=== PATIENT | male | born 1965 | race Caucasian/White ===

== ENCOUNTER 2021-07-21 20:34 | Inpatient (IN) | payer OTHER ==
--- NOTE | 2021-07-21 21:33 | ED ---
SOB HPI - General Stated Complaint: covid+, SOB Time Seen by Provider: 07/21/21 20:36 Source: patient, EMS Mode of arrival: EMS Limitations: no limitations - History of Present Illness Initial Comments: 55 year-old male patient presents to the emergency department as a transfer from [facility] for hypoxic respiratory failure related to COVID-19. Patient states that he started having symptoms about a week ago and tested positive for COVID. States that he started to become progressively more short of breath over the last couple of days. Unable to walk to the bathroom without becoming significantly winded. Patient did have extensive work up in [place], chest xray showed multifocal pneumonia consistent with COVID-19. Oxygen saturation decreased there to 84% on room air. Labs showed positive COVID test, Na 129, Mg 2.4. He was given tylenol, decadron, and IV fluids. Patient denies any other medical problems. Denies history of smoking. No chronic lung conditions. He is not vaccinated. - Related Data Allergies Allergy/AdvReac Type Severity Reaction Status Date / Time No Known Allergies Allergy Verified 07/21/21 20:43 Review of Systems ROS Statement: Those systems with pertinent positive or pertinent negative responses have been documented in the HPI. ROS Other: All systems not noted in ROS Statement are negative. Past Medical History Past Medical History: No Reported History History of Any Multi-Drug Resistant Organisms: None Reported Past Surgical History: No Surgical Hx Reported Past Psychological History: No Psychological Hx Reported Smoking Status: Never smoker Past Alcohol Use History: None Reported Past Drug Use History: None Reported General Exam Limitations: no limitations General appearance: alert, in no apparent distress, other (Physical well- developed, well-nourished adult male patient in mild respiratory distress.) Eye exam: Present: normal appearance, PERRL, EOMI. Absent: scleral icterus, conjunctival injection, periorbital swelling ENT exam: Present: normal exam, normal oropharynx, mucous membranes moist Respiratory exam: Present: normal lung sounds bilaterally, respiratory distress, other (Tachypnea). Absent: wheezes, rales, rhonchi, stridor Cardiovascular Exam: Present: normal rhythm, tachycardia, normal heart sounds. Absent: systolic murmur, diastolic murmur, rubs, gallop, clicks GI/Abdominal exam: Present: soft, normal bowel sounds. Absent: distended, tenderness, guarding, rebound, rigid Neurological exam: Present: alert, oriented X3, CN II-XII intact Psychiatric exam: Present: normal affect, normal mood Skin exam: Present: warm, dry, intact, normal color. Absent: rash Course Vital Signs 07/21/21 20:37 Temperature 97.9 F Pulse Rate 92 Respiratory 24 Rate Blood Pressure 141/93 O2 Sat by Pulse 86 L Oximetry Medical Decision Making - Medical Decision Making 75-year-old male patient presents to the emergency department today as a transfer from [facility] for hypoxic respiratory failure related to COVID- 19. Saturday hypoxic at 84% on room air. Chest x-ray showed pneumonia. Lab work showed decreased sodium and elevated magnesium most likely related to dehydration. We will do CT Angio of the Chest. He will be admitted for further evaluation and monitoring. Will treat with steroids, supplemental oxygen, Vitamins, and consult pulmonology. Patient is agreeable with this plan. Case discussed with my attending Dr. Kate. Disposition Clinical Impression: Acute hypoxemic respiratory failure due to COVID-19, Dehydration Disposition: ADMITTED IP TO THIS [facility] Condition: Serious Referrals: Andres Subramanian MD [Primary Care Provider] - 1-2 days Decision to Admit Reason: Admit from EC Decision Date: 07/21/21 Decision Time: 21:34
[2021-07-21] MEDS ORDERED: NALOXONE 0.4 MG/ML 1 ML VIAL IV PRN (21:34)
[2021-07-21] MEDS ORDERED: ONDANSETRON 4 MG/2 ML VIAL IVP PRN (21:34)
[2021-07-21] MEDS ORDERED: ACETAMINOPHEN TAB 325 MG TAB PO PRN (21:34)
--- NOTE | 2021-07-21 22:24 | CT ---
EXAMINATION TYPE: CT chest angio for PE DATE OF EXAM: 07/21/2021 COMPARISON: None HISTORY: covid CT DLP: 311 mGycm Automated exposure control for dose reduction was used. CONTRAST: Performed with IV Contrast, patient injected with 100 mL of Isovue 370. There are 3-D post processed images. Images obtained from the thoracic inlet to the diaphragm with IV contrast. There is extensive patchy airspace infiltrates throughout both lungs. Heart is top normal in size. Th ere is no pericardial effusion. There is no evidence of any significant pleural fluid. Upper abdomina l soft tissues appear intact. There is normal contrast opacification of the pulmonary arteries. There are no filling defects. Thoracic aorta is intact. There is no aneurysm or dissection. There are a few bilateral bronchial lymph nodes that measure up to 1.5 cm. There are a few paratrache al mediastinal lymph nodes up to 1.5 cm. The thoracic spine is intact. IMPRESSION: No evidence of pulmonary embolism. Extensive multifocal pneumonia. Mild mediastinal and bronchial adenopathy consistent with pneumonia.
[2021-07-22] MEDS ORDERED: ALBUTEROL HFA INHALER INHALATION PRN ×2 (01:04→17:22)
[2021-07-22] MEDS: SODIUM CHLORIDE 0.9% 1,000 ML IV SCH ×3 (05:16→23:55)
[2021-07-22] MEDS: ALBUTEROL HFA INHALER INHALATION SCH ×4 (07:47→20:32)
--- NOTE | 2021-07-22 09:42 | P.CNPUL ---
History of Present Illness Consult date: 07/22/21 Requesting physician: Jesse Bearden Reason for consult: pneumonia Chief complaint: Shortness of breath and cough History of present illness: This is a 55-year-old white male, on vaccination needed for COVID-19 infection, patient has no previous medical illnesses, he was seen in the ER at [facility], with mostly symptoms of upper respiratory infection, cough, shortness of breath, nasal congestion, and this was back on the which is roughly 8 days ago. Patient tested positive for COVID-19 infection, however he was told that there is nothing to do and he should be taking jxon-rgo-[id number] medications at home. Patient took Tylenol, he also took Decadron, and fluids, however he was getting worse. Seen again in the ER and he was noted to have extensive infiltrates on his chest x-ray and on his CT angiogram of the chest, patient was transferred to [facility], required the liters high flow and nonrebreather mask, to maintain O2 saturation in the low 90s. Patient was admitted, and this consult was initiated. Mostly patient had symptoms of URI, he had low-grade fever at one point, he had no nausea no vomiting no abdominal pain no diarrhea, no loss of sensation of taste or smell. Review of Systems Constitutional: Weakness and low-grade fever. HEENT: Nasal congestion. No sore throat. Pulmonary: Cough and shortness of breath Cardiac: Negative GI: Negative Genitourinary: Negative Muscular skeletal: Negative except for weakness Skin negative Endocrine negative Neuropsych negative Hematologic: Negative Past Medical History Past Medical History: No Reported History History of Any Multi-Drug Resistant Organisms: None Reported Past Surgical History: No Surgical Hx Reported Past Anesthesia/Blood Transfusion Reactions: No Reported Reaction Past Psychological History: No Psychological Hx Reported Smoking Status: Never smoker Past Alcohol Use History: None Reported Past Drug Use History: None Reported Medications and Allergies Home Medications Medication Instructions Recorded Confirmed Type Albuterol Sulfate [Albuterol 2 puff PO RT-Q6H PRN 07/21/21 07/21/21 History Sulfate Hfa] Allergies Allergy/AdvReac Type Severity Reaction Status Date / Time No Known Allergies Allergy Verified 07/21/21 21:33 Physical Exam Vitals: Vital Signs Temp Pulse Resp BP BP Pulse Ox 07/22/21 08:12 94 L 07/22/21 05:41 97.6 F 137/81 94 L 07/22/21 03:00 91 22 116/83 91 L 07/22/21 01:50 93 L 07/22/21 01:04 91 22 128/86 86 L 07/21/21 20:37 97.9 F 92 24 141/93 86 L Intake and Output 07/21/21 07/22/21 07/22/21 22:59 06:59 14:59 Intake Total 0 Balance 0 Intake: Oral 0 Other: # Voids 0 Weight 83.915 kg 83.915 kg Physical Exam: Revealed 55-year-old white male on non-rebreather mask, in no distress while on oxygen. Head: Atraumatic, normocephalic. HEENT:[Neck is supple.] [No neck masses.] [No thyromegaly.] [No JVD.] Chest: [Symmetrical chest expansion, crackles at the bases. No rhonchi and no wheezes. Cardiac Exam: [Normal S1 and S2, no S3 gallop, no murmur.] Abdomen: [Soft, nontender, no megaly, no rebound, no guarding, normal bowel sounds.] Extremities: [No clubbing, no edema, no cyanosis.] Neurological Exam: [No focal neurologic deficit.] The catheter: Normal mood affect and normal mental status examination. Skin: No rashes. Results - Diagnostic Findings CT scan - chest: image reviewed (As noted on the HPI. No evidence of pulmonary embolism however the patient had extensive bilateral infiltrates consistent with COVID-19 pneumonia.) Assessment and Plan Assessment: Impression: Acute hypoxic respiratory failure secondary to COVID-19 pneumonia Acute hypovolemic hyponatremia unvaccinated for COVID-19 infection Recommendation: Continue oxygen and titrate accordingly Continue COVID-19 cocktail Continue Decadron, vitamin C, vitamin D, and melatonin Start patient on baricitinib Order and monitor inflammatory markers. We will continue to follow. Time with Patient: Greater than 30
[2021-07-22] MEDS: CHOLECALCIFEROL 125 MCG (5000 IU) TABLET PO SCH (09:43)
[2021-07-22] MEDS: ZINC SULFATE 220 MG CAP PO SCH (09:44)
[2021-07-22] MEDS: DEXAMETHASONE SOD PHOSPHATE 10 MG/ML 1 ML VIAL IVP SCH (09:44)
[2021-07-22] MEDS: ASCORBIC ACID 500 MG TAB PO SCH (09:44)
[2021-07-22 11:13] LABS: Basophils % (A) 0 %; Eosinophils % (A) 0 %; HCT 44.2 % (39.0-53.0); HGB 15.7 gm/dL (13.0-17.5); Lymphocytes # (A) 0.5 k/uL (1.0-4.8); Lymphocytes % (A) 5 %; MCH 33.9 pg (25.0-35.0); MCHC 35.5 g/dL (31.0-37.0); MCV 95.3 fL (80.0-100.0); Mean Platelet Volume 7.5; Monocytes # (A) 0.4 k/uL (0-1.0); Monocytes % (A) 4 %; Neutrophils # (A) 8.3 k/uL (1.3-7.7); Neutrophils % (A) 90 %; Platelet Count 427 k/uL (150-450); RBC 4.64 m/uL (4.30-5.90); WBC 9.3 k/uL (3.8-10.6)
[2021-07-22 11:24] LABS: ALT 78 U/L (4-49); AST 89 U/L (17-59); African American GFR (CKD) >90 (>60 ml/min/1.73 sqM); Albumin 3.1 g/dL (3.5-5.0); Albumin/Globulin Ratio 0.9; Alkaline Phosphatase 155 U/L (38-126); Anion Gap 9 mmol/L; Blood Urea Nitrogen 23 mg/dL (9-20); Calcium 8.2 mg/dL (8.4-10.2); Carbon Dioxide 22 mmol/L (22-30); Chloride 105 mmol/L (98-107); Globulin 3.5 g/dL; Glucose 136 mg/dL (74-99); LDH 1435 U/L (313-618); Non-African American GFR(CKD) >90 (>60 ml/min/1.73 sqM); Potassium 4.4 mmol/L (3.5-5.1); Sodium 136 mmol/L (137-145); Total Bilirubin 1.2 mg/dL (0.2-1.3); Total Protein 6.6 g/dL (6.3-8.2)
[2021-07-22 11:39] LABS: C Reactive Protein 20.9 mg/dL (<1.0)
[2021-07-22] MEDS: BARICITINIB 2 MG TABLET PO SCH (14:17)
[2021-07-22] MEDS: ENOXAPARIN 40 MG/0.4 ML SYRINGE SQ SCH (14:17)
--- NOTE | 2021-07-22 20:25 | HP ---
HISTORY AND PHYSICAL DATE OF SERVICE: 07/22/2021 CHIEF COMPLAINTS: Shortness of breath and cough with . HISTORY OF PRESENT ILLNESS: This 55-year-old gentleman with a past medical history of no significant medical issues presented to [facility] Emergency Room, referred from Awais Amaro. The patient had acute hypoxic respiratory failure secondary to COVID-19. The patient had symptoms for at least 7 days' duration. The patient was found to be COVID-19 positive. Pulse ox 85% on room air on admission. A chest CTA was done which I reviewed personally. It showed acute bilateral extensive interstitial pneumonia, highly suggestive of COVID-19, and the patient was admitted for further evaluation and treatment. There is no history of any fever, rigor or chills at this time. Labs show the patient has lymphopenia and sodium is 137. Inflammatory markers for COVID-19 are elevated. Elevated AST was also noted. Dr. Villegas is following the patient closely. The patient has been started on the usual medications at this time. There is no history of any fever, rigor or chills. PAST MEDICAL HISTORY: No history of cardiovascular illness. MEDICATIONS: Medications prior to admission include albuterol. ALLERGIES: NONE. FAMILY HISTORY: No history of heart disease or strokes in the family. SOCIAL HISTORY: No history of smoking. No history of alcohol intake. REVIEW OF SYSTEMS: ENT: No diminished hearing. No diminished vision. CARDIOVASCULAR SYSTEM: No angina, palpitations. RESPIRATORY SYSTEM: As mentioned earlier. GI: As mentioned earlier. : No dysuria. NERVOUS SYSTEM: No numbness, weakness. ALLERGY/IMMUNOLOGY: No asthma or hay fever. MUSCULOSKELETAL: As mentioned earlier. HEMATOLOGY/ONCOLOGY: No history of anemia. ENDOCRINE: No history of diabetes or hypothyroidism. CONSTITUTIONAL: As mentioned earlier. DERMATOLOGY: Negative. RHEUMATOLOGY: Negative. PSYCHIATRY: As mentioned earlier. PHYSICAL EXAMINATION: Patient alert and oriented x3. Pulse is 96, blood pressure 140/79, respiration 20, temperature 97.4, pulse ox 93% on 13 L. HEENT: Conjunctivae normal. NECK: No jugular venous distention. CARDIOVASCULAR: S1, S2 muffled. RESPIRATION: Breath sounds diminished at the bases. Bilateral scattered rhonchi and crackles. Expiratory wheezing also present. ABDOMEN: Soft, nontender. No mass palpable. LEGS: No edema. No swelling. NERVOUS SYSTEM: Higher functions as mentioned earlier. Moves all 4 limbs. No focal motor or sensory deficit. LYMPHATICS: No lymph node palpable in neck, axillae or groin. SKIN: No ulcer, rash, bleeding. JOINTS: No active deforming arthropathy. LABS: CBC ntd sodium 136, potassium 4.4. Other labs are noted. ASSESSMENT: 1. Acute COVID-19 infection with acute COVID-19 bilateral interstitial pneumonia, severe, with acute hypoxic respiratory failure. 2. Hyponatremia. 3. Lymphopenia. 4. Elevated random glucose. 5. Elevated BUN. 6. Increased AST, ALT, possibly hepatitis secondary to COVID-19. 7. Elevated alkaline phosphatase. 8. Elevated LDH and inflammatory markers of COVID-19. RECOMMENDATIONS AND DISCUSSION: In this 55-year-old gentleman who presented with multiple complex medical issues, we will monitor the patient closely, continue the current medications, continue the usual medication, bronchodilators, steroids and Lovenox. The patient might be a candidate for remdesivir. We will consult Infectious Disease as well as Pulmonary. Continue to monitor. Overall prognosis guarded because of multiple complex medical issues. Further recommendations to follow. MMODL / IJN: [id number] / KAVIN
[2021-07-22] MEDS: FAMOTIDINE 20 MG TAB PO SCH (21:35)
[2021-07-23] MEDS: ALBUTEROL HFA INHALER INHALATION SCH ×4 (07:32→19:52)
[2021-07-23] MEDS: FAMOTIDINE 20 MG TAB PO SCH ×2 (09:27→21:01)
[2021-07-23] MEDS: ASCORBIC ACID 500 MG TAB PO SCH (09:27)
[2021-07-23] MEDS: DEXAMETHASONE SOD PHOSPHATE 10 MG/ML 1 ML VIAL IVP SCH (09:27)
[2021-07-23] MEDS: ZINC SULFATE 220 MG CAP PO SCH (09:30)
[2021-07-23] MEDS: CHOLECALCIFEROL 125 MCG (5000 IU) TABLET PO SCH (09:30)
[2021-07-23] MEDS: ENOXAPARIN 40 MG/0.4 ML SYRINGE SQ SCH (09:30)
[2021-07-23 11:14] LABS: ALT 153 U/L (4-49); African American GFR (CKD) >90 (>60 ml/min/1.73 sqM); Albumin 3.1 g/dL (3.5-5.0); Albumin/Globulin Ratio 0.9; Anion Gap 10 mmol/L; Blood Urea Nitrogen 22 mg/dL (9-20); C Reactive Protein 6.2 mg/dL (<1.0); Calcium 8.3 mg/dL (8.4-10.2); Carbon Dioxide 22 mmol/L (22-30); Chloride 107 mmol/L (98-107); Globulin 3.4 g/dL; Glucose 112 mg/dL (74-99); Non-African American GFR(CKD) >90 (>60 ml/min/1.73 sqM); Sodium 139 mmol/L (137-145); Total Bilirubin 1.2 mg/dL (0.2-1.3); Total Protein 6.5 g/dL (6.3-8.2)
[2021-07-23 11:25] LABS: Potassium 4.7 mmol/L (3.5-5.1)
[2021-07-23 11:26] LABS: AST 145 U/L (17-59); Alkaline Phosphatase 156 U/L (38-126)
[2021-07-23 11:27] LABS: LDH 1803 U/L (313-618)
[2021-07-23 11:55] LABS: Basophils # (A) 0.1 k/uL (0-0.2); Basophils % (A) 1 %; Eosinophils # (A) 0.1 k/uL (0-0.7); Eosinophils % (A) 1 %; HCT 50.1 % (39.0-53.0); HGB 16.7 gm/dL (13.0-17.5); Lymphocytes # (A) 0.7 k/uL (1.0-4.8); Lymphocytes % (A) 7 %; MCH 32.4 pg (25.0-35.0); MCHC 33.3 g/dL (31.0-37.0); MCV 97.4 fL (80.0-100.0); Mean Platelet Volume 8.1; Monocytes # (A) 0.6 k/uL (0-1.0); Monocytes % (A) 5 %; Neutrophils # (A) 9.8 k/uL (1.3-7.7); Neutrophils % (A) 86 %; Platelet Count 495 k/uL (150-450); RBC 5.15 m/uL (4.30-5.90); RDW 13.7 % (11.5-15.5); WBC 11.3 k/uL (3.8-10.6)
[2021-07-23] MEDS: SODIUM CHLORIDE 0.9% 1,000 ML IV SCH (14:05)
[2021-07-23] MEDS: BARICITINIB 2 MG TABLET PO SCH (14:05)
--- NOTE | 2021-07-23 14:40 | P.PN ---
Subjective Progress Note Date: 07/23/21 Principal diagnosis: COVID-19 pneumonia This is a 55-year-old white male, on vaccination needed for COVID-19 infection, patient has no previous medical illnesses, he was seen in the ER at [facility], with mostly symptoms of upper respiratory infection, cough, shortn ess of breath, nasal congestion, and this was back on the which is roughly 8 days ago. Patient tested positive for COVID-19 infection, however he was told that there is nothing to do and he should be taking vpsv-icn-klawlns medications at home. Patient took Tylenol, he also took Decadron, and fluids, however he was getting worse. Seen again in the ER and he was noted to have extensive infi ltrates on his chest x-ray and on his CT angiogram of the chest, patient was transferred to [facility], required the liters high flow and nonrebreather mask, to maintain O2 saturation in the low 90s. Patient was admitted, and this consult was initiated. Mostly patient had symptoms of URI, he had low-grade fever at one point, he had no nausea no vomiting no abdominal pain no diarrhea, no loss of sensation of taste or smell. The patient is seen today 07/23/2021 in follow-up on the regular medical floor. He is currently resting comfortably in bed. Awake and alert in no acute distress. He is still requiring 15 L high flow nasal cannula to maintain O2 saturations at 88%. Occasionally using the nonrebreather mask. He is feeling about the same today as compared to yesterday. No better but no worse. Dyspneic with minimal exertion. 11.3. Hemoglobin 16.7. Lymphocytes 0.7. D- dimer 2.09. Sodium 139. Potassium 4.7. Creatinine 0.90. AST 125. ALT 153. LDH 1803. C-reactive protein 6.2. He remains on ferrous note, Decadron, Lovenox, vitamin supplements. Objective - Vital Signs Vital signs: Vital Signs Temp 97.7 F 07/23/21 08:00 Pulse 111 H 07/23/21 08:00 Resp 20 07/23/21 08:00 BP 129/79 07/23/21 08:00 Pulse Ox 88 L 07/23/21 08:00 Intake & Output 07/22/21 07/23/2107/23/21 18:59 06:59 18:59 Intake Total 1320 Output Total 240 400 Balance -240 1320 -400 Intake: Intake, IV Titration 600 Amount Sodium Chloride 0.9% 1, 600 000 ml @ 75 mls/hr IV . [id number] [facility] Rx#:[id number] Oral 720 Output: Urine 240 400 Other: Voiding Method Urinal # Voids 1 2 - Exam GENERAL EXAM: Alert, doesn't 55 year old gentleman, on 15 L high flow nasal cannula plus nonrebreather, fairly comfortable in no apparent distress. HEAD: Normocephalic. EYES: Normal reaction of pupils, equal size. NOSE: Clear with pink turbinates. THROAT: No erythema or exudates. NECK: No masses, no JVD. CHEST: No chest wall deformity. LUNGS: Equal air entry with crackles in the bilateral bases. CVS: S1 and S2 normal with no audible murmur, regular rhythm. ABDOMEN: No hepatosplenomegaly, normal bowel sounds, no guarding or rigidity. SPINE: No scoliosis or deformity SKIN: No rashes CENTRAL NERVOUS SYSTEM: No focal deficits, tone is normal in all 4 extremities. EXTREMITIES: There is no peripheral edema. No clubbing, no cyanosis. Peripheral pulses are intact. - Labs CBC & Chem 7: 07/23/21 10:30 07/23/21 10:30 Labs: Abnormal Lab Results - Last 24 Hours (Table) 07/22/21 07/23/21 07/23/21 Range/Units 11:01 10:30 10:30 WBC 11.3 H (3.8-10.6) k/uL Plt Count 495 H (150-450) k/uL Neutrophils # 9.8 H (1.3-7.7) k/uL Lymphocytes # 0.7 L (1.0-4.8) k/uL D-Dimer 2.09 H (<0.60) mg/L FEU BUN (9-20) mg/dL Glucose (74-99) mg/dL Calcium (8.4-10.2) mg/dL AST (17-59) U/L ALT (4-49) U/L Alkaline Phosphatase (38-126) U/L Lactate Dehydrogenase (313-618) U/L C-Reactive Protein (<1.0) mg/dL Albumin (3.5-5.0) g/dL Procalcitonin 0.26 H (0.02-0.09) ng/mL 07/23/21 Range/Units 10:30 WBC (3.8-10.6) k/uL Plt Count (150-450) k/uL Neutrophils # (1.3-7.7) k/uL Lymphocytes # (1.0-4.8) k/uL D-Dimer (<0.60) mg/L FEU BUN 22 H (9-20) mg/dL Glucose 112 H (74-99) mg/dL Calcium 8.3 L (8.4-10.2) mg/dL AST 145 H (17-59) U/L ALT 153 H (4-49) U/L Alkaline Phosphatase 156 H (38-126) U/L Lactate Dehydrogenase 1803 H (313-618) U/L C-Reactive Protein 6.2 H (<1.0) mg/dL Albumin 3.1 L (3.5-5.0) g/dL Procalcitonin (0.02-0.09) ng/mL Assessment and Plan Assessment: 1 Acute hypoxemic respiratory failure secondary to COVID-19 pneumonia. Patient is not vaccinated. On Baricitinib 2 Elevated inflammatory markers secondary to above 3 Transaminitis Plan: The patient was seen and evaluated by Dr. Villegas Remains on 15 L high flow nasal cannula with occasional nonrebreather mask Continue Baricitinib, Lovenox, Decadron, vitamin supplement Follow-up chest x-ray and labs in the a.m. Titrate the FiO2 as tolerated Increase his activity as tolerate Frequent position changes while laying in bed including prone We will continue to follow I, the cosigning physician, performed a history & physical examination of the patient. Lungs sounds with crackles in the bilateral bases. Maintaining O2 saturations in the 90s on 15 L high flow nasal cannula plus a nonrebreather mask. I discussed the assessment and plan of care with my nurse practitioner, Xuan Denise. I attest to the above note as dictated by her.
--- NOTE | 2021-07-23 19:15 | PN ---
PROGRESS NOTE DATE OF SERVICE: 07/23/2021 This 55-year-old gentleman, admitted with shortness of breath and cough, also acute COVID-19 infection and acute hypoxic respiratory failure. Dr. Villegas is following the patient closely. The patient also had elevated inflammatory markers as well as elevated liver function tests. Procalcitonin was also elevated. The patient is started on usual medications. No chest pain. No palpitations. No fever. PHYSICAL EXAMINATION: Alert and oriented x3. Pulse is 104, blood pressure 130/82, respiration 22, temperature 97.6, pulse ox 95% on 13 L nasal cannula. HEENT: Conjunctivae normal. NECK: No jugular venous distention. CARDIOVASCULAR: S1, S2 muffled. RESPIRATION: Breath sounds diminished at the bases. Bilateral scattered rhonchi and crackles. ABDOMEN: Soft, nontender. LEGS: No edema. No swelling. NERVOUS SYSTEM: No focal deficit. LABS: WBC 11.3. D-dimer is 2.09. Other labs are noted. ASSESSMENT: 1. Acute COVID-19 infection with acute COVID-19 bilateral interstitial pneumonia, severe, with acute hypoxic respiratory failure. 2. Hyponatremia. 3. Elevated D-dimer. 4. Lymphopenia. 5. Elevated random glucose. 6. Elevated BUN. Elevated AST, ALT possibly acute hepatitis secondary to COVID-19. 7. Elevated alkaline phosphatase. 8. Elevated LDH and inflammatory markers of COVID-19. 9. FULL CODE. RECOMMENDATIONS AND DISCUSSION: I recommend to continue current medications, continue with symptomatic treatment. Continue with the Lovenox. Continue the rest of the medications. The patient had a CTA of the chest. I would recommend repeat labs, chest x-ray as well as ultrasound of the leg, and closely monitor with Pulmonary and Infectious Disease. Further recommendations to follow. MMODL / IJN: [id number] /
--- NOTE | 2021-07-23 19:26 | US ---
EXAMINATION TYPE: US venous doppler duplex LE BI DATE OF EXAM: 07/23/2021 7:07 PM COMPARISON: NONE CLINICAL HISTORY: dvt. Elevated d-dimer SIDE PERFORMED: Bilateral TECHNIQUE: The lower extremity deep venous system is examined utilizing real time linear array sonog brooks with graded compression, doppler sonography and color-flow sonography. VESSELS IMAGED: Common Femoral Vein Deep Femoral Vein Greater Saphenous Vein * Femoral Vein Popliteal Vein Small Saphenous Vein * Proximal Calf Veins (* superficial vessels) Right Leg: Negative for DVT Left Leg: Negative for DVT IMPRESSION: No evidence of deep vein thrombosis in both legs.
[2021-07-24] MEDS: SODIUM CHLORIDE 0.9% 1,000 ML IV SCH ×2 (04:16→18:38)
--- NOTE | 2021-07-24 07:40 | XR ---
EXAMINATION TYPE: XR chest 1V portable DATE OF EXAM: 07/24/2021 Comparison: 07/21/2021 Clinical History: 55-year-old male CoVID pneumonia Findings: Heart upper limits of normal in size. Patchy and confluent bilateral airspace opacities appear slight ly increased compared to prior exam. No pleural effusion. No pneumothorax. Impression: Ongoing diffuse bilateral COVID pneumonia, slightly worsened from prior.
[2021-07-24] MEDS: ALBUTEROL HFA INHALER INHALATION SCH ×4 (07:48→20:13)
--- NOTE | 2021-07-24 08:15 | P.CONS ---
History of Present Illness - Reason for Consult Consult date: 07/23/21 covid 19 , remdesivir ? Requesting physician: Jesse Bearden - Chief Complaint shortness of breath and cough x 8 days - History of Present Illness History of present illness : Patient is 55-year male presented to [facility] ER with symptom mostly of cough and shortness of breath and nasal congestion in this patient symptoms started on July 13, 2021 patient was diagnosed with a COVID-19 and has been advised symptomatic treatment however the patient is admitted in improved patient subsequently back to the ER the patient was noticed to have extensive infiltrate in the chest x-ray and a CT angiogram of the chest subsequently patient has been transferred to [facility] ER for further evaluation on presentation to this facility the patient was afebrile patient was hypoxic with O2 sats of 86% currently requiring 13 L high flow nasal cannula oxygen patient did have a normal white count with lymphopenia creatinine was normal he did have elevated liver enzymes patient did have a CT angiogram at this facility no evidence of PE discharge extensive patchy airspace infiltrate throughout both lungs patient was admitted to hospital infectious he was consulted for further management patient currently denies having any fever or chills, patient denies any chest pain main symptom remains to be shortness of breath on minimal exertion even at rest patient did have a cough which is moderate intensity not visibly sputum some nausea but no vomiting no abdominal pain had no further diarrhea Review of system: CONSTITUTIONAL: Positive for weakness denies high-grade fever. EYES: No complaint. ENT: No complaint. RESPIRATORY: As per history of present illness. CARDIOVASCULAR: No complaint. GENITOURINARY: No complaint. GASTROINTESTINAL: No complaint. MUSCULOSKELETAL: No complaint. INTEGUMENTARY: No complaint. PSYCHOLOGIC: No complaint. ENDOCRINE: No complaint. NEUROLOGIC: No complaint. Past medical history : Reviewed, documented below Past surgical history : Reviewed, documented below Social history: Reviewed, documented below Medications: Reviewed, as documented below EXAMINATION: Vital sigans= Reviewed and documented below GENERAL DESCRIPTION: Middle-aged male lying in bed, no distress. No tachypnea or accessory muscle of respiration use. HEENT: Shows Pallor , no scleral icterus. Oral mucous membrane is dry. NECK: Trachea central, no thyromegaly. LUNGS: Unlabored breathing. Coarse breath sounds bilaterally. No wheeze or crackle. HEART: S1, S2, regular rate and rhythm. ABDOMEN: Soft, no tenderness , guarding or rigidity EXTREMITIES: No edema of feet. SKIN: No rash, no masses palpable. NEUROLOGICAL: The patient is awake, alert, oriented x3, mood and affect normal. LABS AND RADIOLOGY: Reviewed results see below Assessment :1-patient presented to hospital with increasing shortness of breath cough in this patient symptom has been going on since July 13 patient is currently out of the therapeutic window for remdesivir per [facility] policy and clinically there is no suspicious for secondary bacterial pneumonia did have mild elevated procalcitonin which could be seen with severe COVID-19 infection Plan: 1-patient to continue with Baricitinab , dexamethasone Lovenox zinc and ascorbic acid 2-droplet isolation and respiratory support 3-no need for systemic antibiotic therapy We will follow on clinical condition and cultures to further adjust medication if needed Thank you for this consultation we will follow the patient along with you Past Medical History Past Medical History: No Reported History History of Any Multi-Drug Resistant Organisms: None Reported Past Surgical History: No Surgical Hx Reported Past Anesthesia/Blood Transfusion Reactions: No Reported Reaction Past Psychological History: No Psychological Hx Reported Smoking Status: Never smoker Past Alcohol Use History: None Reported Past Drug Use History: None Reported Medications and Allergies Home Medications Medication Instructions Recorded Confirmed Type Albuterol Sulfate [Albuterol 2 puff PO RT-Q6H PRN 07/21/21 07/21/21 History Sulfate Hfa] Allergies Allergy/AdvReac Type Severity Reaction Status Date / Time No Known Allergies Allergy Verified 07/21/21 21:33 Physical Exam Vitals: Vital Signs Temp Pulse Resp BP BP Pulse Ox 07/23/21 08:00 97.7 F 111 H 20 129/79 88 L 07/23/21 07:33 93 L 07/23/21 02:25 97.1 F L 98 19 118/75 96 07/22/21 20:21 97.1 F L 85 18 127/76 93 L 07/22/21 19:34 17 07/22/21 15:00 97.4 F L 96 20 140/79 93 L Intake and Output 07/22/21 07/23/21 07/23/21 22:59 06:59 14:59 Intake Total 1320 Output Total 240 400 Balance -240 1320 -400 Intake: Intake, IV Titration 600 Amount Sodium Chloride 0.9% 1, 600 000 ml @ 75 mls/hr IV . [id number] [facility] Rx#:[id number] Oral 720 Output: Urine 240 400 Other: Voiding Method Urinal # Voids 1 2 Results CBC & Chem 7: 07/23/21 10:30 07/23/21 10:30 Labs: Abnormal Lab Results - Last 24 Hours (Table) 07/22/21 07/23/21 07/23/21 Range/Units 11:01 10:30 10:30 WBC 11.3 H (3.8-10.6) k/uL Plt Count 495 H (150-450) k/uL Neutrophils # 9.8 H (1.3-7.7) k/uL Lymphocytes # 0.7 L (1.0-4.8) k/uL D-Dimer 2.09 H (<0.60) mg/L FEU BUN (9-20) mg/dL Glucose (74-99) mg/dL Calcium (8.4-10.2) mg/dL AST (17-59) U/L ALT (4-49) U/L Alkaline Phosphatase (38-126) U/L Lactate Dehydrogenase (313-618) U/L C-Reactive Protein (<1.0) mg/dL Albumin (3.5-5.0) g/dL Procalcitonin 0.26 H (0.02-0.09) ng/mL 07/23/21 Range/Units 10:30 WBC (3.8-10.6) k/uL Plt Count (150-450) k/uL Neutrophils # (1.3-7.7) k/uL Lymphocytes # (1.0-4.8) k/uL D-Dimer (<0.60) mg/L FEU BUN 22 H (9-20) mg/dL Glucose 112 H (74-99) mg/dL Calcium 8.3 L (8.4-10.2) mg/dL AST 145 H (17-59) U/L ALT 153 H (4-49) U/L Alkaline Phosphatase 156 H (38-126) U/L Lactate Dehydrogenase 1803 H (313-618) U/L C-Reactive Protein 6.2 H (<1.0) mg/dL Albumin 3.1 L (3.5-5.0) g/dL Procalcitonin (0.02-0.09) ng/mL
[2021-07-24] MEDS: DEXAMETHASONE SOD PHOSPHATE 10 MG/ML 1 ML VIAL IVP SCH (08:50)
[2021-07-24] MEDS: ASCORBIC ACID 500 MG TAB PO SCH (08:50)
[2021-07-24] MEDS: ENOXAPARIN 40 MG/0.4 ML SYRINGE SQ SCH (08:50)
[2021-07-24] MEDS: FAMOTIDINE 20 MG TAB PO SCH ×2 (08:50→20:35)
[2021-07-24] MEDS: CHOLECALCIFEROL 125 MCG (5000 IU) TABLET PO SCH (08:51)
[2021-07-24] MEDS: ZINC SULFATE 220 MG CAP PO SCH (08:51)
[2021-07-24 11:09] LABS: African American GFR (CKD) 114.9 (60.0-200.0); Albumin 2.8 g/dL (3.8-4.9); Albumin/Globulin Ratio 1.04 (1.60-3.17); Anion Gap 10.7 mmol/L (4.00-12.00); BUN/Creat Ratio 20.25 Ratio (12.00-20.00); Basophils # (A) 0.05 X 10*3/uL (0.00-0.10); Basophils % (A) 0.6 %; Blood Urea Nitrogen 16.2 mg/dL (9.0-27.0); C Reactive Protein 8.7 mg/dL (0.00-0.80); Calcium 7.8 mg/dL (8.7-10.3); Carbon Dioxide 23.3 mmol/L (21.6-31.8); Eosinophils # (A) 0.12 X 10*3/uL (0.04-0.35); Eosinophils % (A) 1.3 %; Globulin 2.7 g/dL (1.6-3.3); HCT 42.3 % (39.6-50.0); HGB 13.9 g/dL (13.0-17.0); Lymphocytes # (A) 1.14 X 10*3/uL (0.90-5.00); Lymphocytes % (A) 12.6 %; MCH 31.7 pg (27.0-32.0); MCHC 32.9 g/dL (32.0-37.0); MCV 96.4 fL (80.0-97.0); Mean Platelet Volume 9.3 fL (9.5-12.2); Monocytes # (A) 0.54 X 10*3/uL (0.20-1.00); Neutrophils # (A) 7.08 X 10*3/uL (1.80-7.70); Neutrophils % (A) 78.5 %; Non-African American GFR(CKD) 99.2 (60.0-200.0); Platelet Count 511 X 10*3/uL (140-440); Potassium 4.5 mmol/L (3.5-5.5); RBC 4.39 X 10*6/uL (4.40-5.60); RDW 14.2 % (11.5-14.5); Total Bilirubin 0.8 mg/dL (0.30-1.20); Total Protein 5.5 g/dL (6.2-8.2); WBC 9.02 X 10*3/uL (4.50-10.00)
--- NOTE | 2021-07-24 11:25 | P.PN ---
Subjective Progress Note Date: 07/24/21 Principal diagnosis: Dyspnea, Hypoxia, COVID-19 This is a 55-year-old white male, on vaccination needed for COVID-19 infection, patient has no previous medical illnesses, he was seen in the ER at [facility], with mostly symptoms of upper respiratory infection, cough, shortness of breath, nasal congestion, and this was back on the which is roughly 8 days ago. Patient tested positive for COVID-19 infection, however he was told that there is nothing to do and he should be taking utxh-osu-cjwkkim medications at home. Patient took Tylenol, he also took Decadron, and fluids, however he was getting worse. Seen again in the ER and he was noted to have extensive infiltrates on his chest x-ray and on his CT angiogram of the chest, patient was transferred to [facility], required the liters high flow and nonrebreather mask, to maintain O2 saturation in the low 90s. Patient was admitted, and this consult was initiated. Mostly patient had symptoms of URI, he had low-grade fever at one point, he had no nausea no vomiting no abdominal pain no diarrhea, no loss of sensation of taste or smell. The patient is seen today 07/23/2021 in follow-up on the regular medical floor. He is currently resting comfortably in bed. Awake and alert in no acute distress. He is still requiring 15 L high flow nasal cannula to maintain O2 saturations at 88%. Occasionally using the nonrebreather mask. He is feeling about the same today as compared to yesterday. No better but no worse. Dyspneic with minimal exertion. 11.3. Hemoglobin 16.7. Lymphocytes 0.7. D- dimer 2.09. Sodium 139. Potassium 4.7. Creatinine 0.90. AST 125. ALT 153. LDH 1803. C-reactive protein 6.2. He remains on ferrous note, Decadron, Lovenox, vitamin supplements. On 07/24/2021 patient seen in follow-up on medical surgical floor, he is resting comfortably in bed, he states he is feeling better, breathing easier, he is currently down to 9 L of oxygen socks is 93%, no fever or chills, vital signs have been stable, his chest x-ray shows ongoing diffuse bilateral "pneumonia, slightly worsened from prior exam, lower extremity Dopplers were negative for DVT. Today's labs have been reviewed, white blood cell count is 9.02, hemoglobin is 13.9, d-dimer is stable, at 2.25, electrolytes and renal profile were within normal limits, LDH is improving and is down to 396, and CRP is 8.7, improved since admission, pro-calcitonin level is negative at 0.26. Objective - Vital Signs Vital signs: Vital Signs Temp 97.5 F L 07/24/21 02:36 Pulse 87 07/24/21 08:00 Resp 16 07/24/21 08:00 BP 137/71 07/24/21 08:00 Pulse Ox 95 07/24/21 08:23 Intake & Output 07/23/21 07/24/21 07/24/21 18:59 06:59 18:59 Intake Total 480 1200 Output Total 400 1400 Balance 80 -200 Intake: Intake, IV Titration 600 Amount Sodium Chloride 0.9% 1, 600 000 ml @ 75 mls/hr IV . [id number] [facility] Rx#:[id number] Oral 480 600 Output: Urine 400 1400 Other: Voiding Method Urinal Urinal # Voids 3 - Exam GENERAL EXAM: Alert, very pleasant, 55-year-old white male on 8 L of oxygen with a pulse ox 93% comfortable in no apparent distress. HEAD: Normocephalic/atraumatic. EYES: Normal reaction of pupils, equal size. Conjunctiva pink, sclera white. NOSE: Clear with pink turbinates. THROAT: No erythema or exudates. NECK: No masses, no JVD, no thyroid enlargement, no adenopathy. CHEST: No chest wall deformity. Symmetrical expansion. LUNGS: Equal air entry with diffuse crackles CVS: Regular rate and rhythm, normal S1 and S2, no gallops, no murmurs, no rubs ABDOMEN: Soft, nontender. No hepatosplenomegaly, normal bowel sounds, no guarding or rigidity. EXTREMITIES: No clubbing, no edema, no cyanosis, 2+ pulses and upper and lower extremities. MUSCULOSKELETAL: Muscle strength and tone normal. SPINE: No scoliosis or deformity SKIN: No rashes CENTRAL NERVOUS SYSTEM: Alert and oriented -3. No focal deficits, tone is normal in all 4 extremities. PSYCHIATRIC: Alert and oriented -3. Appropriate affect. Intact judgment and insight. - Labs CBC & Chem 7: 07/24/21 06:38 07/24/21 06:38 Labs: Abnormal Lab Results - Last 24 Hours (Table) 07/23/21 07/23/21 07/23/21 Range/Units 10:30 10:30 10:30 WBC 11.3 H (3.8-10.6) k/uL RBC (4.40-5.60) X 10*6/uL Plt Count 495 H (150-450) k/uL MPV (9.5-12.2) fL Immature Gran # (0.00-0.04) X 10*3/uL Neutrophils # 9.8 H (1.3-7.7) k/uL Lymphocytes # 0.7 L (1.0-4.8) k/uL D-Dimer 2.09 H (<0.60) mg/L FEU BUN 22 H (9-20) mg/dL BUN/Creatinine Ratio (12.00-20.00) Ratio Glucose 112 H (74-99) mg/dL Calcium 8.3 L (8.4-10.2) mg/dL AST 145 H (17-59) U/L ALT 153 H (4-49) U/L Alkaline Phosphatase 156 H (38-126) U/L Lactate Dehydrogenase 1803 H (313-618) U/L C-Reactive Protein 6.2 H (<1.0) mg/dL Total Protein (6.2-8.2) g/dL Albumin 3.1 L (3.5-5.0) g/dL Albumin/Globulin Ratio (1.60-3.17) g/dL 07/24/21 07/24/21 07/24/21 Range/Units 06:38 06:38 06:38 WBC (3.8-10.6) k/uL RBC 4.39 L (4.40-5.60) X 10*6/uL Plt Count 511 H (150-450) k/uL MPV 9.3 L (9.5-12.2) fL Immature Gran # 0.09 H (0.00-0.04) X 10*3/uL Neutrophils # (1.3-7.7) k/uL Lymphocytes # (1.0-4.8) k/uL D-Dimer 2.25 H (<0.60) mg/L FEU BUN (9-20) mg/dL BUN/Creatinine Ratio 20.25 H (12.00-20.00) Ratio Glucose (74-99) mg/dL Calcium 7.8 L (8.4-10.2) mg/dL AST 72 H (17-59) U/L ALT 130 H (4-49) U/L Alkaline Phosphatase (38-126) U/L Lactate Dehydrogenase 396 H (313-618) U/L C-Reactive Protein 8.70 H (<1.0) mg/dL Total Protein 5.5 L (6.2-8.2) g/dL Albumin 2.8 L (3.5-5.0) g/dL Albumin/Globulin Ratio 1.04 L (1.60-3.17) g/dL Assessment and Plan Plan: Assessment: #1. Acute hypoxic respiratory failure secondary to COVID-19 pneumonia, patient is not vaccinated against COVID-19, currently on Baricitinib #2. Elevated inflammatory markers related to the above, improving #3. Transaminitis related to a viral pneumonia, improving #4. Elevated d-dimer and there is no evidence of pulmonary embolism on CT angiogram of the chest and lower extremity Dopplers negative for DVT Plan: Continue Decadron Continue Baricitinib Continue prophylactic Lovenox and vitamins Continue weaning FiO2 to maintain O2 saturations at or above 90% Inflammatory markers are improving I performed a history & physical examination of the patient and discussed their management with my nurse practitioner, Krys Christiansen. I reviewed the nurse practitioner's note and agree with the documented findings and plan of care. Lung sounds are positive for diffuse rales throughout the lung ochoa. The findings and the impression was discussed with the patient. I attest to the documentation by the nurse practitioner. Time with Patient: Less than 30
[2021-07-24] MEDS: BARICITINIB 2 MG TABLET PO SCH (12:16)
--- NOTE | 2021-07-24 14:37 | PN ---
PROGRESS NOTE DATE OF SERVICE: 07/24/2021 REASON FOR FOLLOW UP: Covid 19 infection. INTERVAL HISTORY: The patient is afebrile. The patient is breathing comfortably. Patient denies having any chest pain. Did have a cough, not bringing up any sputum. No abdominal pain. No diarrhea. PHYSICAL EXAMINATION: Blood pressure 137/71, pulse of 80, temperature 97.5. He is 93% on 8 L nasal cannula. General description is a middle-aged male up in the bed in no distress. Respiratory system: Unlabored breathing. Coarse breath sounds bilaterally. Heart S1, S2. Regular rate and rhythm. Abdomen: Soft, no tenderness. Extremities: No edema of the feet. LABS: Hemoglobin is 13.2, white count 9.2, creatinine 0.8. DIAGNOSTIC IMPRESSION AND PLAN: Patient with acute COVID-19 infection in this patient out of the therapeutic window for Remdesivir. The patient is currently on baricitinib, dexamethasone, Lovenox, zinc and ascorbic acid to continue along with respiratory support. Monitor clinical course closely. MMODL / IJN: [id number] /
--- NOTE | 2021-07-24 15:37 | PN ---
PROGRESS NOTE DATE OF SERVICE: 07/24/2021 This 55-year-old gentleman who was admitted with acute COVID-19 infection also had acute bilateral interstitial pneumonia. The patient also had hypoxia. The patient is closely monitored at this time. The patient is being followed by multiple consultants. The patient is on the usual medications for COVID-19. The most recent chest x-ray which was reviewed personally by me showed extensive bilateral interstitial infiltrates suggestive of COVID-19 pneumonia. The patient is on high-dose oxygen at this time. The patient is on baricitinib also. The oxygen is being weaned off, but still on 9 L nasal cannula. PHYSICAL EXAMINATION: Alert and oriented x3. Pulse is 76, blood pressure 130/77, respiration 20, temperature 97.4, pulse ox 96% on 7 L. HEENT: Conjunctivae normal. NECK: No jugular venous distention. CARDIOVASCULAR: S1, S2 muffled. RESPIRATION: Breath sounds diminished at the bases. A few scattered rhonchi. ABDOMEN: Soft, nontender. NERVOUS SYSTEM: No focal deficit. LABS: D-dimer is 2.25, calcium 7.8. Other labs noted. ASSESSMENT: 1. Acute COVID-19 infection with acute COVID-19 bilateral interstitial pneumonia, severe, with acute hypoxic respiratory failure. 2. Hyponatremia. 3. Elevated D-dimer. 4. Lymphopenia. 5. Elevated random glucose. 6. Elevated BUN, elevated AST, ALT, possibly acute hepatitis secondary to COVID-19. 7. Elevated alkaline phosphatase. 8. Elevated LDH and inflammatory markers of COVID-19. 9. FULL CODE. RECOMMENDATIONS AND DISCUSSION: I recommend to continue current medications, continue with symptomatic treatment. LFTs are rather stable at this time. We will continue to monitor. The C-reactive protein is still elevated. D-dimer is also elevated. I would recommend to continue the conservative line of management and titrate the oxygen. Closely follow with Pulmonary. Guarded prognosis because of multiple complex medical issues. Further recommendations to follow. MMODL / IJN: [id number] /
[2021-07-25] MEDS: SODIUM CHLORIDE 0.9% 1,000 ML IV SCH ×2 (05:56→22:29)
[2021-07-25] MEDS: ASCORBIC ACID 500 MG TAB PO SCH (07:44)
[2021-07-25] MEDS: FAMOTIDINE 20 MG TAB PO SCH ×2 (07:44→22:28)
[2021-07-25] MEDS: ENOXAPARIN 40 MG/0.4 ML SYRINGE SQ SCH (07:44)
[2021-07-25] MEDS: DEXAMETHASONE SOD PHOSPHATE 10 MG/ML 1 ML VIAL IVP SCH (07:45)
[2021-07-25] MEDS: CHOLECALCIFEROL 125 MCG (5000 IU) TABLET PO SCH (07:47)
[2021-07-25] MEDS: ZINC SULFATE 220 MG CAP PO SCH (07:47)
[2021-07-25] MEDS: ALBUTEROL HFA INHALER INHALATION SCH ×4 (08:40→20:42)
--- NOTE | 2021-07-25 13:54 | P.PN ---
Subjective Progress Note Date: 07/25/21 Principal diagnosis: COVID-19 pneumonia This is a 55-year-old white male, on vaccination needed for COVID-19 infection, patient has no previous medical illnesses, he was seen in the ER at [facility], with mostly symptoms of upper respiratory infection, cough, shortn ess of breath, nasal congestion, and this was back on the which is roughly 8 days ago. Patient tested positive for COVID-19 infection, however he was told that there is nothing to do and he should be taking [id number]-[id number] medications at home. Patient took Tylenol, he also took Decadron, and fluids, however he was getting worse. Seen again in the ER and he was noted to have extensive infi ltrates on his chest x-ray and on his CT angiogram of the chest, patient was transferred to [facility], required the liters high flow and nonrebreather mask, to maintain O2 saturation in the low 90s. Patient was admitted, and this consult was initiated. Mostly patient had symptoms of URI, he had low-grade fever at one point, he had no nausea no vomiting no abdominal pain no diarrhea, no loss of sensation of taste or smell. The patient is seen today 07/23/2021 in follow-up on the regular medical floor. He is currently resting comfortably in bed. Awake and alert in no acute distress. He is still requiring 15 L high flow nasal cannula to maintain O2 saturations at 88%. Occasionally using the nonrebreather mask. He is feeling about the same today as compared to yesterday. No better but no worse. Dyspneic with minimal exertion. 11.3. Hemoglobin 16.7. Lymphocytes 0.7. D- dimer 2.09. Sodium 139. Potassium 4.7. Creatinine 0.90. AST 125. ALT 153. LDH 1803. C-reactive protein 6.2. He remains on ferrous note, Decadron, Lovenox, vitamin supplements. The patient is seen today 07/25/2021 in follow-up. He is currently resting quite comfortably in bed. Current oxygen requirements are at 6 liters high flow nasal cannula with O2 saturation in the low 90s. He is afebrile. Hemodynamically stable. Doppler of the lower extremities were negative for DVT. No new labs today. He is continued on Baricitinib, Decadron, Lovenox, vitamin supplements. Objective - Vital Signs Vital signs: Vital Signs Temp 97.3 F L 07/25/21 08:00 Pulse 78 07/25/21 08:00 Resp 16 07/25/21 08:00 BP 127/75 07/25/21 08:00 Pulse Ox 93 L 07/25/21 08:40 Intake & Output 07/24/21 07/25/21 07/25/21 18:59 06:59 18:59 Intake Total 600 Balance 600 Intake: Oral 600 Other: Voiding Method Urinal Urinal Urinal # Voids 2 1 # Bowel Movements 1 - Exam GENERAL EXAM: Alert, doesn't 55 year old gentleman, on 6 L high flow nasal cannula plus nonrebreather, comfortable in no apparent distress. HEAD: Normocephalic. EYES: Normal reaction of pupils, equal size. NOSE: Clear with pink turbinates. THROAT: No erythema or exudates. NECK: No masses, no JVD. CHEST: No chest wall deformity. LUNGS: Equal air entry with crackles in the bilateral bases. CVS: S1 and S2 normal with no audible murmur, regular rhythm. ABDOMEN: No hepatosplenomegaly, normal bowel sounds, no guarding or rigidity. SPINE: No scoliosis or deformity SKIN: No rashes CENTRAL NERVOUS SYSTEM: No focal deficits, tone is normal in all 4 extremities. EXTREMITIES: There is no peripheral edema. No clubbing, no cyanosis. Peripheral pulses are intact. - Labs CBC & Chem 7: 07/24/21 06:38 07/24/21 06:38 Assessment and Plan Assessment: 1 Acute hypoxemic respiratory failure secondary to COVID-19 pneumonia. Patient is not vaccinated. On Baricitinib 2 Elevated inflammatory markers secondary to above 3 Transaminitis Plan: The patient was seen and evaluated by Dr. Nice Improved and down to 6 L high flow nasal cannula Continue Baricitinib, Lovenox, Decadron, vitamin supplements Follow-up chest x-ray and labs in the a.m. Titrate the FiO2 as tolerated Increase his activity as tolerated We will continue to follow I, the cosigning physician, performed a history & physical examination of the patient. Lungs sounds with crackles in the bilateral bases. Maintaining O2 saturations in the 90s on 6 L high flow nasal cannula. I discussed the assessment and plan of care with my nurse practitioner, Xuan Denise. I attest to the above note as dictated by her.
[2021-07-25] MEDS: BARICITINIB 2 MG TABLET PO SCH (15:29)
--- NOTE | 2021-07-25 17:24 | PN ---
PROGRESS NOTE DATE OF SERVICE: 07/25/2021 This 55-year-old gentleman who was admitted with acute Covid 19 is being closely monitored at this time. Chest x-ray showed some infiltrate. The patient is still on high-flow oxygen at 9 L. No chest pain. No palpitations. No fever. PHYSICAL EXAMINATION: Alert and oriented times three. Pulse 73, blood pressure is 131/77, respirations 16, temperature 97.4, pulse ox 96% on 6 L. HEENT: Conjunctivae normal. Neck is no JVD. Cardiovascular: S1, S2 muffled. Respiration: Breath sounds diminished in the bases. Scattered rhonchi. Expiratory wheezing. Abdomen: Soft. Nontender. Nervous system: No focal deficits. LABS: WBC 9.3, hemoglobin 13.9, and D-dimer is 2.25. Other labs are noted. ASSESSMENT: 1. Acute Covid 19 infection with acute Covid 19 bilateral interstitial pneumonia, severe with acute hypoxic respiratory failure. 2. Hyponatremia. 3. Elevated D-dimer. 4. Lymphopenia. 5. Elevated random glucose. 6. Elevated BUN, elevated AST/ALT possibly acute hepatitis secondary to Covid 19. 7. Elevated alkaline phosphatase. 8. Elevated LDH and inflammatory markers of Covid 19. 9. FULL CODE. RECOMMENDATIONS AND DISCUSSION: Recommend to continue current medications, symptomatic treatment. Repeat labs. Closely follow with Dr. Nice. Increase ambulation. Once the patient is stabilized, the patient may be able to be discharged home but overall prognosis is guarded because of above mentioned multiple complex medical issues. Discussed with the patient who understands and agrees. MMODL / IJN: [id number] /
--- NOTE | 2021-07-25 23:39 | PN ---
PROGRESS NOTE DATE OF SERVICE: 07/25/2021 REASON FOR FOLLOWUP: COVID-19 pneumonia. INTERVAL HISTORY: The patient is afebrile. The patient has been breathing more comfortably. The patient denies having any chest pain or shortness of breath. No worsening cough. No abdominal pain or diarrhea. PHYSICAL EXAMINATION: Blood pressure 144/78 with a pulse of 70, temperature 97.6. He is 95% on 6 L nasal cannula. General description is a middle-aged male lying in bed in no distress. Respiratory system: Unlabored breathing, decreased intensity of breath sounds. No wheeze. Heart S1, S2. Regular rate and rhythm. Abdomen soft, no tenderness. LABS: No new labs have been obtained today. DIAGNOSTIC IMPRESSION AND PLAN: Patient with COVID-19 pneumonia in this patient who has shown overall clinical improvement. The patient is currently covered with baricitinib in addition to dexamethasone, Lovenox, zinc and ascorbic acid. To continue along with respiratory support and monitor his clinical course closely. MMODL / IJN: [id number] /
--- NOTE | 2021-07-26 08:25 | XR ---
EXAMINATION TYPE: XR chest 1V portable DATE OF EXAM: 07/26/2021 Comparison: 07/24/2021 Clinical History: 55-year-old male CoVID pneumonia Findings: Heart borderline in size. Patchy and confluent bilateral airspace opacities especially in the periphe ry of the lungs, right greater than left. There may be slight improvement in the lower lungs. Impression: Continued patchy and confluent bilateral COVID pneumonia. There may be minimal early improvement in t he lower lungs.
[2021-07-26 08:36] VITALS: RESP 18
[2021-07-26] MEDS: ALBUTEROL HFA INHALER INHALATION SCH ×3 (09:33→16:28)
[2021-07-26] MEDS: FAMOTIDINE 20 MG TAB PO SCH (09:34)
[2021-07-26] MEDS: DEXAMETHASONE SOD PHOSPHATE 10 MG/ML 1 ML VIAL IVP SCH (09:34)
[2021-07-26] MEDS: ASCORBIC ACID 500 MG TAB PO SCH (09:34)
[2021-07-26] MEDS: ZINC SULFATE 220 MG CAP PO SCH (09:35)
[2021-07-26] MEDS: ENOXAPARIN 40 MG/0.4 ML SYRINGE SQ SCH (09:35)
[2021-07-26] MEDS: CHOLECALCIFEROL 125 MCG (5000 IU) TABLET PO SCH (09:36)
[2021-07-26] MEDS: SODIUM CHLORIDE 0.9% 1,000 ML IV SCH (09:57)
[2021-07-26 11:33] LABS: Basophils # (A) 0.04 X 10*3/uL (0.00-0.10); Basophils % (A) 0.4 %; Eosinophils # (A) 0.03 X 10*3/uL (0.04-0.35); Eosinophils % (A) 0.3 %; HCT 43.1 % (39.6-50.0); HGB 13.8 g/dL (13.0-17.0); Lymphocytes # (A) 1.52 X 10*3/uL (0.90-5.00); Lymphocytes % (A) 16.5 %; MCH 30.6 pg (27.0-32.0); MCV 95.6 fL (80.0-97.0); Mean Platelet Volume 9.1 fL (9.5-12.2); Monocytes # (A) 0.66 X 10*3/uL (0.20-1.00); Monocytes % (A) 7.2 %; Neutrophils # (A) 6.87 X 10*3/uL (1.80-7.70); Neutrophils % (A) 74.7 %; Platelet Count 560 X 10*3/uL (140-440); RBC 4.51 X 10*6/uL (4.40-5.60); RDW 13.8 % (11.5-14.5)
[2021-07-26 11:40] LABS: African American GFR (CKD) 113.8 (60.0-200.0); Albumin 2.8 g/dL (3.8-4.9); Anion Gap 11.8 mmol/L (10.00-18.00); BUN/Creat Ratio 18.66 Ratio (12.00-20.00); Blood Urea Nitrogen 15.3 mg/dL (9.0-27.0); Globulin 2.8 g/dL (1.6-3.3); Non-African American GFR(CKD) 98.2 (60.0-200.0); Potassium 4.4 mmol/L (3.5-5.5); Total Bilirubin 0.7 mg/dL (0.30-1.20); Total Protein 5.6 g/dL (6.2-8.2)
[2021-07-26] MEDS: BARICITINIB 2 MG TABLET PO SCH (14:17)
--- NOTE | 2021-07-26 15:09 | PN ---
PROGRESS NOTE DATE OF SERVICE: 07/26/2021 REASON FOR FOLLOWUP: COVID-19 pneumonia. INTERVAL HISTORY: Patient is currently afebrile. Patient is breathing comfortably. The patient is down to 3 L cannula. Denies any chest pain or shortness of breath. No worsening cough. No abdominal pain. No diarrhea. PHYSICAL EXAMINATION: Blood pressure 130/69, pulse of 73, temperature 97.1. He is 92% on 3 L nasal cannula. General description is a middle-aged male up in the bed in no distress. Respiratory system: Unlabored breathing, decreased intensity of breath sounds. No wheeze. Heart S1, S2. Regular rate and rhythm. Extremities: No edema of the feet. LABS: Hemoglobin is 13.1, white count 9.20, creatinine 0.8. Chest x-ray did show some improvement. DIAGNOSTIC IMPRESSION/PLAN: Patient with acute COVID-19 pneumonia in this patient who has shown overall improvement on Baricitinib. He is to finish therapy with short course of Dexamethasone, zinc and ascorbic acid and close outpatient followup. Continue supportive care. MMODL / IJN: [id number] /
[2021-07-26 15:36] VITALS: BP 134/74; PULSE 90; TEMP 97.7
--- NOTE | 2021-07-26 15:38 | P.PN ---
Subjective Progress Note Date: 07/26/21 Principal diagnosis: COVID-19 pneumonia This is a 55-year-old white male, on vaccination needed for COVID-19 infection, patient has no previous medical illnesses, he was seen in the ER at [facility], with mostly symptoms of upper respiratory infection, cough, shortn ess of breath, nasal congestion, and this was back on the which is roughly 8 days ago. Patient tested positive for COVID-19 infection, however he was told that there is nothing to do and he should be taking [id number] medications at home. Patient took Tylenol, he also took Decadron, and fluids, however he was getting worse. Seen again in the ER and he was noted to have extensive infi ltrates on his chest x-ray and on his CT angiogram of the chest, patient was transferred to [facility], required the liters high flow and nonrebreather mask, to maintain O2 saturation in the low 90s. Patient was admitted, and this consult was initiated. Mostly patient had symptoms of URI, he had low-grade fever at one point, he had no nausea no vomiting no abdominal pain no diarrhea, no loss of sensation of taste or smell. The patient is seen today 07/23/2021 in follow-up on the regular medical floor. He is currently resting comfortably in bed. Awake and alert in no acute distress. He is still requiring 15 L high flow nasal cannula to maintain O2 saturations at 88%. Occasionally using the nonrebreather mask. He is feeling about the same today as compared to yesterday. No better but no worse. Dyspneic with minimal exertion. 11.3. Hemoglobin 16.7. Lymphocytes 0.7. D- dimer 2.09. Sodium 139. Potassium 4.7. Creatinine 0.90. AST 125. ALT 153. LDH 1803. C-reactive protein 6.2. He remains on ferrous note, Decadron, Lovenox, vitamin supplements. The patient is seen today 07/25/2021 in follow-up. He is currently resting quite comfortably in bed. Current oxygen requirements are at 6 liters high flow nasal cannula with O2 saturation in the low 90s. He is afebrile. Hemodynamically stable. Doppler of the lower extremities were negative for DVT. No new labs today. He is continued on Baricitinib, Decadron, Lovenox, vitamin supplements. The patient is seen today 07/26/2021 in follow-up. He is awake and alert in no acute distress. Breathing quite a bit better today. Down to 3 L nasal cannula. He is anxious to go home. No worsening shortness of breath, cough or congestion. Chest x-ray continues to show patchy and confluent bilateral CoVID pneumonia. Some minimal improvement. White count 9.2. Hemoglobin 13.8. Lymphocytes 1.52. D-dimer 2.0. Sodium 139. Potassium 4.4. Creatinine 0.8. LDH 337. C-reactive protein 3.0. He is continued on vitamin supplements, Decadron, Lovenox. Maintained on Baricitinib. Objective - Vital Signs Vital signs: Vital Signs Temp 97.1 F L 07/26/21 08:00 Pulse 73 07/26/21 08:00 Resp 18 07/26/21 08:00 BP 130/69 07/26/21 08:00 Pulse Ox 93 L 07/26/21 13:15 Intake & Output 07/25/21 07/26/21 07/26/21 18:59 06:59 18:59 Intake Total 118 118 Output Total 501 290 Balance -383 118 -290 Intake: Oral 118 118 Output: Urine 500 290 Stool 1 Other: Voiding Method Urinal Urinal # Voids 3 1 - Exam GENERAL EXAM: Alert, pleasant 55 year old gentleman, on 3 L nasal cannula, comfortable in no apparent distress. HEAD: Normocephalic. EYES: Normal reaction of pupils, equal size. NOSE: Clear with pink turbinates. THROAT: No erythema or exudates. NECK: No masses, no JVD. CHEST: No chest wall deformity. LUNGS: Equal air entry with crackles in the bilateral bases. CVS: S1 and S2 normal with no audible murmur, regular rhythm. ABDOMEN: No hepatosplenomegaly, normal bowel sounds, no guarding or rigidity. SPINE: No scoliosis or deformity SKIN: No rashes CENTRAL NERVOUS SYSTEM: No focal deficits, tone is normal in all 4 extremities. EXTREMITIES: There is no peripheral edema. No clubbing, no cyanosis. Peripheral pulses are intact. - Labs CBC & Chem 7: 07/26/21 06:35 07/26/21 06:35 Labs: Abnormal Lab Results - Last 24 Hours (Table) 07/26/21 07/26/21 07/26/21 Range/Units 06:35 06:35 06:35 Plt Count 560 H (140-440) X 10*3/uL MPV 9.1 L (9.5-12.2) fL Immature Gran # 0.08 H (0.00-0.04) X 10*3/uL Eosinophils # 0.03 L (0.04-0.35) X 10*3/uL D-Dimer 2.00 H (<0.60) mg/L FEU Calcium 8.0 L (8.7-10.3) mg/dL AST 66 H (14-35) U/L ALT 133 H (10-49) U/L Lactate Dehydrogenase 337 H (120-246) U/L C-Reactive Protein 3.00 H (0.00-0.80) mg/dL Total Protein 5.6 L (6.2-8.2) g/dL Albumin 2.8 L (3.8-4.9) g/dL Albumin/Globulin Ratio 1.00 L (1.60-3.17) g/dL Assessment and Plan Assessment: 1 Acute hypoxemic respiratory failure secondary to COVID-19 pneumonia. Patient is not vaccinated. On Baricitinib 2 Elevated inflammatory markers secondary to above 3 Transaminitis Plan: The patient was seen and evaluated by Dr. Arlet Solorzano and down to 3 L nasal cannula For discharge from the pulmonary standpoint Lobe in the office in 3-4 weeks I, the cosigning physician, performed a history & physical examination of the patient. Lungs sounds with crackles in the bilateral bases. Maintaining O2 saturations in the 90s on 3 L nasal cannula. I discussed the assessment and plan of care with my nurse practitioner, Xuan Denise. I attest to the above note as dictated by her.
--- NOTE | 2021-07-27 08:05 | DS ---
DISCHARGE SUMMARY DATE OF SERVICE: 07/26/2021 FINAL DIAGNOSES: 1. Acute COVID-19 infection with acute COVID-19 bilateral interstitial pneumonia, severe, with acute hypoxic respiratory failure. 2. Hyponatremia. 3. Elevated D-dimer. 4. Lymphopenia. 5. Elevated random glucose. 6. Elevated BUN. 7. Elevated AST, ALT, possibly hepatitis secondary to COVID-19. 8. Elevated alkaline phosphatase. 9. Elevated LDH and inflammatory markers of COVID-19. 10.FULL CODE. DISCHARGE DISPOSITION: The patient will be discharged in stable condition with guarded prognosis. HISTORY OF PRESENT ILLNESS: This 55-year-old gentleman with a past medical history of multiple medical problems was admitted with COVID-19 pneumonia as well as hypoxia. Patient was treated with bronchodilators and symptomatic treatment. The patient improved significantly. Pulmonary saw the patient. Infectious Disease saw the patient On exam, vitals are stable. CARDIOVASCULAR: S1, S2 muffled. Abdomen soft. NERVOUS SYSTEM: No focal deficit. DISCHARGE ADVICE AND MEDICATIONS: 1. Diet is cardiac. 2. Activity limited until followup. 3. Follow up with Dr. Subramanian in 2-3 days. 4. Follow up with Dr. Nice and Dr. Valenzuela as recommended. 5. Albuterol q.i.d. and p.r.n. 6. Decadron 6 mg p.o. daily for 6 more days. 7. Orazinc 220 mg daily. 8. Vitamin C 1000 mg daily. 9. Vitamin D3 125 mg p.o. daily. Once again, the patient will be discharged in stable condition with guarded prognosis. MMODL / IJN: [id number] /
== END 2021-07-26 17:20 | disposition home or self-care (01) | DRG 177 ==
LOC: EC 20:34 → 4SSUR 22:44 → 6NMEDSUR 07-22 04:13
PROVIDERS: ADMIT Hospitalist; ATTEND Hospitalist
PROC: XW0DXM6 Introduction of Baricitinib into Mouth and Pharynx, External Approach, New Technology Group 6 (ICD-10-PCS; principal; 2021-07-22)
PROC: 5A0945A Assistance with Respiratory Ventilation, 24-96 Consecutive Hours, High Flow/Velocity Cannula (ICD-10-PCS; 2021-07-23)
DX: U07.1 COVID-19 (principal); J12.82 Pneumonia due to coronavirus disease 2019; J96.01 Acute respiratory failure with hypoxia; E87.1 Hypo-osmolality and hyponatremia; D72.810 Lymphocytopenia; E86.1 Hypovolemia; E86.0 Dehydration; R73.09 Other abnormal glucose; R74.01 Elevation of levels of liver transaminase levels; R74.8 Abnormal levels of other serum enzymes
CPT/HCPCS: 71045; 71275; 80053; 83615; 84145; 85025; 85379; 86140; 93970; 94760; 99285